=== PATIENT | male | born 1980 | race Caucasian/White ===

== ENCOUNTER → 2016-06-01 | Outpatient (CLI) | payer BC ==
[~2016-06-01] MED LIST: Albuterol 0.083% 2.5 MG/3 ML Neb Soln NEB ONE
== END ==
LOC: MW.RT 08:07
PROVIDERS: ATTEND Physician Assistant
DX: J45.909 Unspecified asthma, uncomplicated (principal)
CPT/HCPCS: 94060; 94729

== ENCOUNTER → 2016-06-07 | Outpatient (CLI) | payer BC ==
--- NOTE | 2016-06-08 11:07 | MR ---
EXAM DATE: 06/07/16 PATIENT'S AGE: 35 Patient: SOULEYMANE VIEIRA Facility: [place], [place] Site . Site : [id number] Study: MRI Knee Right [id number]/[id number] 6:54:22 PM Ordering Physician: Matt Sánchez Final Report: HISTORY: Right knee pain. Technique: MRI right knee without contrast. Comparison: None. Findings: Medial compartment: Medial meniscus: Intrameniscal degenerative signal changes. No tear. Articular cartilage: No focal cartilage defects. Lateral compartment: Lateral meniscus: Increased intrasubstance signal in the anterior root with ill- defined fraying of the superior surface fibers near the attachment. Frayed fibers are displaced superiorly into the intercondylar notch. Body and posterior horn are intact. Articular cartilage: No focal cartilage defects. Patellofemoral compartment: Large area of grade 3-4 cartilage loss in the lateral trochlea and inferior trochlear sulcus with subchondral marrow edema and subchondral cysts. Small area of grade 2 cartilage loss over the patellar apex. Ligaments: ACL: Mucoid degeneration, otherwise intact. PCL: Mild mucoid degeneration, otherwise intact. MCL: Intact. Lateral ligamentous complex: Popliteus tendinosis. Fibular collateral ligament and distal biceps femoris tendon are intact. Extensor mechanism: Distal quadriceps and patellar tendons are intact. Medial and lateral patellar restraints are intact. No lateral patellar subluxation. No patella steve. Joint space: 2 x 1.8 x 1 cm joint body in the suprapatellar recess. No joint effusion. Bones and soft tissues: Reactive marrow edema in the proximal tibia at the ACL and anterior horn lateral meniscus attachments. No fracture. No marrow replacing process. Trace fluid in the semimembranosus/gastrocnemius bursae. Impression: 1. Large area of high-grade partial-thickness and full-thickness cartilage loss in the trochlea. Minimal low-grade patellar cartilage loss. 2. 2 cm joint body in the suprapatellar recess. 3. Lateral meniscus anterior horn root degeneration with superior surface tearing. 4. ACL and PCL mucoid degeneration. Dictated by Terrell Rahman MD @ Jun 08 2016 8:18AM (Electronic Signature) Report Signed by Proxy and Original Signed Document filed in the Medical Record. VANIA
== END ==
LOC: MW.MRI 17:17
PROVIDERS: ATTEND Physician Assistant
DX: M25.561 Pain in right knee (principal); M23.241 Derangement of anterior horn of lateral meniscus due to old tear or injury, right knee
CPT/HCPCS: 73721-26-RT; 73721-RT

== ENCOUNTER → 2016-06-20 | Outpatient (CLI) | payer BC ==
--- NOTE | 2016-06-20 12:41 | CR ---
EXAMINATION: Right knee HISTORY: Pain COMPARISON: 06/07/2016 TECHNIQUE: 4 views FINDINGS: There is no acute osseous abnormality, dislocation, or fracture identified. Bone mineraliz ation appears grossly normal. There is an ossific density measuring 2 cm within the superior joint s pace comparable to the loose body noted on the prior MRI. No significant joint effusion or soft tiss ue swelling. IMPRESSION: 1. No acute osseous abnormalities. 2. 2 cm loose body within the superior joint space.
== END ==
LOC: MW.CHORTHO 08:00
PROVIDERS: ATTEND Physician Assistant
DX: M25.561 Pain in right knee (principal)
CPT/HCPCS: 73564-26-RT; 73564-RT

== ENCOUNTER 2016-06-30 07:54 | Day surgery (SDC) | payer BC ==
[~2016-06-30 07:54] MED LIST changes: -Albuterol 0.083% 2.5 MG/3 ML Neb Soln NEB ONE; +Lactated Ringers 1,000 ML IV SCH; +Lidocaine 1% 50 ML MDV ONE
[2016-06-30] MEDS ORDERED: ceFAZolin 2 GM in Premix Bag 1 BAG IV SCH (08:00)
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
[2016-06-30] MEDS ORDERED: Propofol 200 MG/20 ML SDV ONE (08:44)
[2016-06-30] MEDS ORDERED: Lidocaine 2% 5 ML SDV ONE (08:44)
[2016-06-30] MEDS ORDERED: Midazolam 1 MG/ML 2 ML SDV ONE (08:44)
[2016-06-30] MEDS ORDERED: fentaNYL 100 MCG/2 ML SDV ONE ×2 (08:44→10:50)
[2016-06-30] MEDS ORDERED: Acetaminophen/HYDROcodone 325-5 MG Tab PO PRN (10:00)
[2016-06-30] MEDS ORDERED: Ondansetron 4 MG Tab.DIS PO PRN (10:00)
[2016-06-30] MEDS ORDERED: Ondansetron 4 MG/2 ML SDV ONE (11:16)
--- NOTE | 2016-06-30 11:35 | PCM.OPNOTE ---
- General Post-Op/Procedure Note Date of Surgery/Procedure: 06/30/16 Operative Procedure(s): R knee arthroscopy with excision of loose body Post-Op Diagnosis: DJD R knee. Loose body R knee Primary Surgeon: Juliette Langford Asbestos Abatement Worker: Pia Solorio in mLs: 5 Condition: Good Free Text/Narrative:: tt=30 min #[id number]
--- NOTE | 2016-06-30 12:01 | PCM.POSTAN ---
POST ANESTHESIA ASSESSMENT - MENTAL STATUS Mental Status: alert, oriented - RESPIRATORY Respiratory Status: respiratory rate WNL, airway patent, O2 saturation stable - CARDIOVASCULAR CV Status: pulse rate WNL, blood pressure stable - GASTROINTESTINAL GI Status: no symptoms - POST OP HYDRATION Hydration Status: adequate & stable
--- NOTE | 2016-06-30 12:03 | OR ---
SURGEON: Juliette Langford MD DATE OF PROCEDURE: 06/30/2016 PREOPERATIVE DIAGNOSIS: Right knee loose body. POSTOPERATIVE DIAGNOSES: 1. Right knee loose body. 2. Right knee degenerative joint disease. PROCEDURE: Right knee arthroscopy with excision of loose body (2 cm x 2 cm). SALES PLANNER: Pia Solorio MD, PGY-2. ANESTHESIA: General. ESTIMATED BLOOD LOSS: 5 mL. TOURNIQUET TIME: 30 minutes. COMPLICATIONS: None. DVT PROPHYLAXIS: Not indicated. IMPLANTS USED: None. BRIEF HISTORY: Carlos is a 35-year-old male who has had complaint of persistent right knee pain and catching. An MRI showed a large loose body present within the joint. Due to his lack of response to conservative treatment, I did recommend surgical intervention. The risks and goals of the procedure were discussed with the patient and documented preoperatively. He agreed to proceed. DESCRIPTION OF PROCEDURE: The patient was properly identified and brought to the operating room. He was transferred from the OR cart and placed on the operating table in supine position. General anesthesia was administered. After adequate anesthesia was obtained, a well-padded tourniquet was applied to the right lower extremity. The right lower extremity was then prepped in standard fashion using ChloraPrep solution. It was then sterilely draped. A time-out was performed to ensure correct site and procedure. Preoperative antibiotics were given. The surgical site had been marked preoperatively. An Esmarch was used to exsanguinate the right lower extremity and the tourniquet was inflated to 250 mmHg. Lateral portal arthrotomy was established. Blunt trocar and cannula were introduced into the suprapatellar pouch. Camera, inflow, and outflow were assembled. The suprapatellar pouch showed no signs of synovitis. The patellofemoral joint was then visualized. Minor degenerative changes were noted diffusely along the undersurface of the patella consistent with grade 2 chondromalacia. The trochlear groove also showed some degenerative changes consistent with grade 2 chondromalacia, however at the inferior portion of the trochlear groove, there was a large defect noted. I then extended down the lateral and medial gutter. No loose bodies were identified. I then entered the medial compartment. A medial portal arthrotomy was established. A blunt probe was inserted. The meniscus was probed and found to be intact. The joint surfaces showed minor grade 1 to grade 2 chondromalacia diffusely. I then entered the notch. Immediately evident was a large loose body anterior to the anterior cruciate ligament. This was probed and found to be free of the tissue. The ACL and PCL were visualized and probed and found to be intact. I finally entered the lateral compartment. Again minor grade 1 to grade 2 chondromalacia was noted diffusely along the lateral femoral condyle as well as the lateral tibial plateau. The meniscus was probed and found to be intact. We then turned our attention back to the loose body. I was held in place with a spinal needle. A grasper was used to attempt to grab the loose body. The loose body was quite large and we did need to change to a Rika to grab the loose body adequately. This was then removed without difficulty. It was photographed of the size of the loose body was taken. I then reinspected the inferior portion of the trochlear groove. It was approximately 2 cm x 2 cm area of grade 4 chondromalacia along the central portion of the inferior trochlea. It was assumed that this was the donor site for the loose body, no other defects were noted within the cartilage. The area was probed. No loose cartilaginous fragments were noted. The instruments were then removed from the knee. The portal sites were closed with 3-0 Vicryl. Xeroform gauze was placed over the wound and a bulky dressing was applied. The tourniquet was then deflated. He was awakened from his anesthetic and transferred back to the operating room cart. He was brought to recovery room in stable condition. All needle and sponge counts were correct. CHARU / WENDY /[id number]
[2016-06-30] MEDS: fentaNYL 100 MCG/2 ML SDV IVPUSH PRN ×2 (12:06→12:12)
--- NOTE | 2016-06-30 12:33 | PCM.POSTAN ---
POST ANESTHESIA ASSESSMENT - MENTAL STATUS Mental Status: alert, oriented - RESPIRATORY Respiratory Status: respiratory rate WNL, airway patent, O2 saturation stable - CARDIOVASCULAR CV Status: pulse rate WNL, blood pressure stable - GASTROINTESTINAL GI Status: no symptoms - PAIN Pain Score: 3 - POST OP HYDRATION Hydration Status: adequate & stable
--- NOTE | 2016-06-30 12:43 | PCM48HPAN ---
Post Anesthesia Note - EVALUATION WITHIN 48HRS OF ANESTHETIC Vital Signs in Normal Range: Yes Patient Participated in Evaluation: Yes Respiratory Function Stable: Yes Airway Patent: Yes Cardiovascular Function Stable: Yes Hydration Status Stable: Yes Pain Control Satisfactory: Yes Nausea and Vomiting Control Satisfactory: Yes Mental Status Recovered: Yes
[2016-06-30 13:01] VITALS: BP 131/74
== END 2016-06-30 13:00 | disposition home or self-care (01) ==
LOC: MW.SDS 07:54
PROVIDERS: ATTEND Orthopaedic Surgery
PROC: 0SCC4ZZ Extirpation of Matter from Right Knee Joint, Percutaneous Endoscopic Approach (ICD-10-PCS; principal; 2016-06-30)
DX: M23.41 Loose body in knee, right knee (principal); M17.11 Unilateral primary osteoarthritis, right knee; M94.261 Chondromalacia, right knee; J45.909 Unspecified asthma, uncomplicated; N41.1 Chronic prostatitis; Z87.891 Personal history of nicotine dependence; Z87.01 Personal history of pneumonia (recurrent); Z88.5 Allergy status to narcotic agent; Z91.013 Allergy to seafood; Z79.2 Long term (current) use of antibiotics; Z79.899 Other long term (current) drug therapy; Z98.890 Other specified postprocedural states
CPT/HCPCS: 29874; J2250; J2405; J3010; J7120; 01400; 88304; 88311; J2704

== ENCOUNTER 2020-06-01 19:56 | Emergency (ER) | payer OTHER ==
[2020-06-01] MEDS ORDERED: Ketorolac 60 MG/2 ML SDV IM ONE (20:23)
[2020-06-01 20:32] VITALS: PULSE 104
--- NOTE | 2020-06-01 20:59 | EDM.PDOC ---
ED HPI GENERAL MEDICAL PROBLEM - General Chief Complaint: Upper Extremity Injury/Pain Stated Complaint: LT ARM INJURY Time Seen by Provider: 06/01/20 20:15 - History of Present Illness INITIAL COMMENTS - FREE TEXT/NARRATIVE: HISTORY AND PHYSICAL: History of present illness: This is a 39-year-old gentleman who presents to the ER today complaining of pain to his left proximal forearm that he sustained after a fall on the ice while heading into work. Patient denies any loss of consciousness. Patient denies any head trauma. Patient denies any pain or discomfort to his pelvis or lower extremities. Patient denies any chest discomfort or discomfort to his right arm. Patient denies any headache or neck discomfort. Review of systems: As per history of present illness and below otherwise all systems reviewed and negative. Past medical history: As per history of present illness and as reviewed below otherwise noncontributory. Surgical history: As per history of present illness and as reviewed below otherwise non contributory. Social history: No reported history of drug or alcohol abuse. Family history: As per history of present illness and as reviewed below otherwise noncontributory. Physical exam: This patient was seen and evaluated during the 2019 SARS-CoV-2 novel coronavirus pandemic period. Community viral transmission is ongoing at time of this encounter and the emergency department is operating under pandemic response procedures. Constitutional: Patient is oriented to person, place, and time. Appears well- developed and well-nourished. No distress. HEENT: Moist mucous membranes Head: Normocephalic and atraumatic Eyes: Right eye exhibits no discharge. Left eye exhibits no discharge. No scleral icterus Neck: Normal range of motion. No tracheal deviation present. Cardiovascular: Normal rate and regular rhythm. Pulmonary: Effort normal, no respiratory distress. Abdominal: No distention Musculoskeletal: Normal range of motion Neurologic: Alert and oriented to person, place and time. Skin: [place], warm and dry. Psychiatric: Normal mood and affect. Behavior is normal. Judgment and thought content normal. Nursing note and vital signs have been reviewed Patient has no C-spine T-spine or L-spine tenderness to palpation. Patient has no left upper or right upper quadrant tenderness to palpation. Patient has no crepitus to palpation to the anterior chest wall. Patient is neurologically intact. Patient does not present with any signs or or symptoms that would be consistent with acute intracranial, intra-abdominal, intrathoracic, or long bone injury. All long bones have been palpated and range of motion been performed and there is no evidence of any acute pathology. Patient's ER physical exam is significant for tenderness to palpation to his proximal left forearm. No deformity or soft tissue swelling identified. Patient has full range of motion to his elbow and is no tenderness to palpation within the elbow joint itself with no effusion identified and no discomfort with passive or active range of motion of the elbow. Diagnostics: X-ray left forearm: No acute fracture or dislocation identified. Therapeutics: Toradol 60 mg IM Assessment and plan: This is a 39-year-old gentleman who presents ER today complaining of pain to his left proximal forearm after a fall and slip on the ice. Patient has no other complaints and no other pain or discomfort other than his left forearm. Patient has been given Toradol IM and will get an x-ray and will be reassessed. X-ray reveals no fracture. Patient was placed in a left arm sling to assist with healing of a left arm sprain. Patient be discharged home with a prescription for ibuprofen to assist with his pain. Reassessment at the time of disposition demonstrates that the patient is in no acute distress. The patient has remained stable throughout the entire ED visit and is without objective evidence for acute process requiring urgent intervention or hospitalization. The patient is stable for discharge, counseling is provided as documented above, discussed symptomatic treatment and specific conditions for return. I have spoken with the patient/caregiver and discussed todays findings, in addition to providing specific details for the plan of care. Questions are answered and there is agreement with the plan. DME note: Left arm sling has been ordered to assist patient with healing of a left forearm sprain. This will assist healing by immobilizing the ligaments and muscles to allow for expedited healing. Patient will need to keep this on for 5 days. Definitive disposition and diagnosis as appropriate pending reevaluation and review of above. L arm Pain Score (Numeric/FACES): 8 - Related Data Allergies Allergy/AdvReac Type Severity Reaction Status Date / Time morphine Allergy Nausea and Verified 06/01/20 20:32 Vomiting Home Meds: Home Meds Albuterol [Ventolin HFA] 1 - 2 puff INH Q4H PRN 06/27/16 [History] Ciprofloxacin HCl [Cipro] 1 tab PO BID 06/27/16 [History] EPINEPHrine [Epipen 2-Jay] 1 dose IM ASDIRECTED PRN 06/27/16 [History] Fluticasone Propionate [Flovent HFA 220 MCG] 2 puff INH BID 06/27/16 [History] Acetaminophen/HYDROcodone [[place] 325-5 MG] 1 - 2 tab PO Q4H PRN #80 tablet 06/30/16 [Rx] Ondansetron [Zofran ODT] 4 mg PO Q8H PRN #30 tab.dis 06/30/16 [Rx] Ibuprofen 600 mg PO Q6HR PRN #30 tablet 06/01/20 [Rx] Past Medical History HEENT History: Reports: Allergic Rhinitis Other HEENT History: allergic to dog and cat dander Cardiovascular History: Reports: None Respiratory History: Reports: Asthma Other Respiratory History: hx of pneumonia at age 23, developed empyema, had thoracotomy for drainage of empyema and breaking up of pleural adhesions, had chest tubes. Gastrointestinal History: Reports: None Genitourinary History: Reports: None Musculoskeletal History: Reports: Arthritis, Fracture Other Musculoskeletal History: hx of fx right wrist Neurological History: Reports: Concussion Psychiatric History: Reports: None Endocrine/Metabolic History: Reports: None Hematologic History: Reports: Other (See Below) Other Hematologic History: was told that his blood clots "too quickly" Immunologic History: Reports: None Oncologic (Cancer) History: Reports: None Dermatologic History: Reports: None - Past Surgical History GI Surgical History: Reports: Other (See Below) Musculoskeletal Surgical History: Reports: Arthroscopic Knee, Other (See Below) Social & Family History - Family History Family Medical History: No Pertinent Family History Review of Systems - Review of Systems Review Of Systems: See Below ED EXAM, GENERAL - Physical Exam Exam: See Below Course - Vital Signs Last Recorded V/S: Last Vital Signs Temp 100 F 06/01/20 20:10 Pulse 104 H 06/01/20 20:10 Resp 17 06/01/20 20:10 BP 114/81 06/01/20 20:10 Pulse Ox 98 06/01/20 20:10 - Orders/Labs/Meds Orders: Active Orders 24 hr Category Date Time Status Forearm 2V Lt [CR] Stat Exams 06/01/20 20:23 Taken Meds: Medications Discontinued Medications Generic Name Dose Route Start Last Admin Trade Name Freq PRN Reason Stop Dose Admin Ketorolac Tromethamine 60 mg 06/01/20 20:23 06/01/20 20:35 Toradol IM 06/01/20 20:24 60 mg ONETIME ONE Administration Departure - Departure Time of Disposition: 21:03 Disposition: Home, Self-Care 01 Condition: Good Clinical Impression: Injury of left forearm Qualifiers: Encounter type: initial encounter Qualified Code(s): S59.912A - Unspecified injury of left forearm, initial encounter Sprain of forearm, left Qualifiers: Encounter type: initial encounter Qualified Code(s): S63.502A - Unspecified sprain of left wrist, initial encounter - Discharge Information Instructions: How To Use a Sling, [id number], Musculoskeletal Pain Referrals: PCP,None [Primary Care Provider] - Forms: ED Department Discharge Additional Instructions: Your seen and evaluated in the ER today secondary to an injury to your left forearm. Your x-ray reveals no fracture. You have likely sprained the muscle in that region. He will be given a prescription for ibuprofen to assist you with your pain as well as an arm sling. Please make an appointment to follow-up with your Workmen's Comp. doctor for reevaluation. [facility] [place] [address] The following information is given to patients seen in the emergency department who are being discharged to home. This information is to outline your options for follow-up care. We provide all patients seen in our emergency department with a follow-up referral. The need for follow-up, as well as the timing and circumstances, are variable depending upon the specifics of your emergency department visit. If you don't have a primary care physician on staff, we will provide you with a referral. We always advise you to contact your personal physician following an emergency department visit to inform them of the circumstance of the visit and for follow-up with them and/or the need for any referrals to a consulting specialist. The emergency department will also refer you to a specialist when appropriate. This referral assures that you have the opportunity for follow-up care with a specialist. All of these measure are taken in an effort to provide you with optimal care, which includes your follow-up. Under all circumstances we always encourage you to contact your private physician who remains a resource for coordinating your care. When calling for follow-up care, please make the office aware that this follow-up is from your recent emergency room visit. If for any reason you are refused follow-up, please contact the [facility] Emergency Department at and asked to speak to the emergency department charge nurse. [facility] [address] [place] [id number] [facility] [address] [place] [id number] Sepsis Event Note (ED) - Evaluation Sepsis Screening Result: No Definite Risk - Focused Exam Vital Signs: Vital Signs Temp Pulse Resp BP Pulse Ox 06/01/20 20:10 100 F 104 H 17 114/81 98 - My Orders Last 24 Hours: My Active Orders 06/01/20 20:23 Forearm 2V Lt [CR] Stat - Assessment/Plan Last 24 Hours: My Active Orders 06/01/20 20:23 Forearm 2V Lt [CR] Stat
--- NOTE | 2020-06-01 21:40 | CR ---
Indication: Pain Technique: Two views of the left forearm Comparison: Left elbow radiographs 02/14/2017 Findings: The radius and ulna are intact. The elbow and wrist joints are normally located. The soft tissues of the forearm are unremarkable. Impression: No acute abnormality. Dictated by George Luciano MD @ Jun 01 2020 9:39PM Signed by Dr. George Luciano @ Jun 01 2020 9:39PM
[2020-06-01 22:23] VITALS: BP 116/71
== END 2020-06-01 21:16 | disposition home or self-care (01) ==
LOC: MW.ED 19:56
DX: S59.912A Unspecified injury of left forearm, initial encounter (principal); J45.909 Unspecified asthma, uncomplicated; Z88.5 Allergy status to narcotic agent; W00.0XXA Fall on same level due to ice and snow, initial encounter; Y99.0 Civilian activity done for income or pay
CPT/HCPCS: 73090; 96372; 99283; J1885

== ENCOUNTER 2020-11-26 17:32 | Emergency (ER) | payer SELFPAY ==
[2020-11-26] MEDS ORDERED: Sodium Chloride 0.9% 10 ML Syringe FLUSH PRN (18:04)
[2020-11-26] MEDS ORDERED: Sodium Chloride 0.9% 2.5 ML Syringe FLUSH PRN (18:04)
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
[2020-11-26 18:31] LABS: BLOOD UREA NITROGEN,BUN 7 mg/dL (7.0-18.0); CARBON DIOXIDE,CO2 27.7 mmol/L (21.0-32.0); CHLORIDE,CL 102 mmol/L (98-107); GLUCOSE RANDOM 92 mg/dL (74-106); LIPASE 113 U/L (73-393); SODIUM,NA 138 mmol/L (136-148)
[2020-11-26] MEDS ORDERED: Iopamidol 755 MG/ML 500 ML Multipack Bottle IVPUSH ONE (18:59)
--- NOTE | 2020-11-26 19:32 | CR ---
INDICATION: Chest pain TECHNIQUE: Chest radiograph 1 view COMPARISON: None FINDINGS: Mediastinum: The mediastinum is normal in appearance. The heart silhouette is normal in size and morphology. Lung: Both lungs are unremarkable in appearance. No sign of pleural effusion seen. No pneumothorax is identified. Bone and Soft tissue: Unremarkable for age. IMPRESSION: 1. No acute cardiopulmonary disease is seen. Dictated by: Tan Velasco MD @ 11/26/2020 19:31:45 (Electronically Signed)
--- NOTE | 2020-11-26 20:39 | CT ---
INDICATION: Headache. Left-sided paresthesias. TECHNIQUE: CT head without i.v. contrast. COMPARISON: None FINDINGS: CSF spaces: Within normal limits for age. Brain parenchyma: The brain parenchyma is normal in appearance with preservation of the hickman-white differentiation. No sign of mass, hemorrhage, or midline shift seen. Skull base and calvarium: The visualized paranasal sinuses are well aerated. The mastoid air cells are clear. The visualized orbits are grossly unremarkable. No skull fractures are seen. IMPRESSION: 1. Negative head CT. Please note that all CT scans at this facility use dose modulation, iterative reconstruction, and/or weight-based dosing when appropriate to reduce radiation dose to as low as reasonably achievable. Dictated by Raul Johnson MD @ 11/26/2020 8:37:[address] Raul Johnson @ Nov 26 2020 8:37PM
--- NOTE | 2020-11-26 21:12 | CT ---
INDICATION: Chest pain since yesterday, numbness and tingling in left foot today TECHNIQUE: Noncontrast CT chest followed by CT chest, abdomen, and pelvis with i.v. contrast during the arterial phase. Coronal and sagittal reformats were obtained. CONTRAST: 100 mL Isovue 370 COMPARISON: None FINDINGS: CHEST: Cardiovascular: The heart has an unremarkable appearance and size. No evidence of intramural hematoma, aneurysm, or dissection in the thoracic aorta. The pulmonary arteries are unremarkable in appearance. No acute pulmonary emboli seen in the central pulmonary arteries. Mediastinum: No mass or adenopathy seen. Lung: There is a 4 mm nodule present in the anterior right middle lobe on image 122, series 405. Linear atelectasis or scarring is seen in the superior segment of the left lower lobe that is hyperdense in appearance which may be due to the presence of a staple line. Pleura and pericardium: No sign of pleural effusion seen. No significant pericardial effusion is present. Chest wall and axilla: Multiple axillary lymph nodes are present bilaterally measuring up to 8 mm. Ill-defined soft tissue is seen in the retroareolar complexes of the chest bilaterally and most likely due to gynecomastia. Bone: Unremarkable for age. No acute osseous injuries seen. ABDOMEN/PELVIS: Liver: Unremarkable. Spleen: Unremarkable. Pancreas: Unremarkable. Gallbladder: Unremarkable. Kidney: Unremarkable. No kidney or ureteral stones or obstruction seen. Adrenal: Unremarkable. Bowel: Unremarkable. The appendix is normal in appearance and size. Vascular: Unremarkable. Lymph: Unremarkable. Peritoneum: Unremarkable. No pneumoperitoneum is seen. No significant ascites is noted. Pelvis: Unremarkable. Soft tissue: Unremarkable. Bone: Unremarkable for age. No acute osseous injuries seen. IMPRESSIONS: 1. No CT evidence of aortic dissection seen. 2. Intramural hematoma cannot be excluded without noncontrast imaging. Dictated by Tan Velasco MD @ 11/26/2020 9:12:24 PM Please note that all CT scans at this facility use dose modulation, iterative reconstruction, and/or weight-based dosing when appropriate to reduce radiation dose to as low as reasonably achievable. Dictated by: Tan Velasco MD @ 11/26/2020 21:12:36 (Electronically Signed)
[2020-11-26 22:31] VITALS: BP 116/76; PULSE 75
--- NOTE | 2020-11-29 10:56 | CT ---
EXAM DATE: 11/26/20 PATIENT'S AGE: 39 Patient: SOULEYMANE VIEIRA Facility: [facility] . Site : 1980 Study: CT-Chest/Abd/Pelvis Angio WHOLE AORTA/DISSECTION-11/26/2020 7:32:07 PM Ordering Physician: Madan Reyes Final Report: INDICATION: Chest pain since yesterday, numbness and tingling in left foot today TECHNIQUE: Noncontrast CT chest followed by CT chest, abdomen, and pelvis with i.v. contrast during the arterial phase. Coronal and sagittal reformats were obtained. CONTRAST: 100 mL Isovue 370 COMPARISON: None FINDINGS: CHEST: Cardiovascular: The heart has an unremarkable appearance and size. No evidence of intramural hematoma, aneurysm, or dissection in the thoracic aorta. The pulmonary arteries are unremarkable in appearance. No acute pulmonary emboli seen in the central pulmonary arteries. Mediastinum: No mass or adenopathy seen. Lung: There is a 4 mm nodule present in the anterior right middle lobe on image 122, series 405. Linear atelectasis or scarring is seen in the superior segment of the left lower lobe that is hyperdense in appearance which may be due to the presence of a staple line. Pleura and pericardium: No sign of pleural effusion seen. No significant pericardial effusion is present. Chest wall and axilla: Multiple axillary lymph nodes are present bilaterally measuring up to 8 mm. Ill-defined soft tissue is seen in the retroareolar complexes of the chest bilaterally and most likely due to gynecomastia. Bone: Unremarkable for age. No acute osseous injuries seen. ABDOMEN/PELVIS: Liver: Unremarkable. Spleen: Unremarkable. Pancreas: Unremarkable. Gallbladder: Unremarkable. Kidney: Unremarkable. No kidney or ureteral stones or obstruction seen. Adrenal: Unremarkable. Bowel: Unremarkable. The appendix is normal in appearance and size. Vascular: Unremarkable. Lymph: Unremarkable. Peritoneum: Unremarkable. No pneumoperitoneum is seen. No significant ascites is noted. Pelvis: Unremarkable. Soft tissue: Unremarkable. Bone: Unremarkable for age. No acute osseous injuries seen. IMPRESSIONS: 1. No CT evidence of aortic dissection seen. 2. Intramural hematoma cannot be excluded without noncontrast imaging. Dictated by Tan Velasco MD @ 11/26/2020 9:12:24 PM Please note that all CT scans at this facility use dose modulation, iterative reconstruction, and/or weight-based dosing when appropriate to reduce radiation dose to as low as reasonably achievable. Dictated by: Tan Velasco MD @ 11/26/2020 21:12:36 Signed by: Tan Velasco MD @11/26/2020 9:12:36 PM (Electronic Signature) Report Signed by Proxy. MTDD
== END 2020-11-26 22:31 | disposition home or self-care (01) ==
LOC: MW.ED 17:32
DX: R07.9 Chest pain, unspecified (principal); R20.2 Paresthesia of skin; J45.909 Unspecified asthma, uncomplicated; Z88.5 Allergy status to narcotic agent; Z79.899 Other long term (current) drug therapy; Z20.822 Contact with and (suspected) exposure to COVID-19
CPT/HCPCS: 36415; 70450; 71045; 71275; 74174; 80053; 81001; 83605; 83690; 84484; 85025; 85610; 87635; 93005; 99285; Q9967; 99284; U0002